=== PATIENT | female | born 1965 | race Caucasian/White ===

== ENCOUNTER 2017-02-03 12:29 | Inpatient (IN) ==
[2017-02-03 14:39] LABS: Basophils % 0.3 %; Eosinophils # 0.1 K/mcL (0.0-0.6); Eosinophils % 1.5 %; Hemoglobin 6.5 g/dL (11.5-15.4); Immature Granulocytes % 0.3 % (0-4); Mean Corpuscular Hemoglobin 27.3 pg (28.0-33.3); Mean Corpuscular Volume 88.2 fL (83.0-100.0); Monocytes # 0.4 K/mcL (0.0-1.3); Neutrophils # 6.3 K/mcL (1.6-8.9); Platelet Count 223 K/mcL (140-400); Red Blood Count 2.38 M/mcL (3.82-4.97); Red Cell Distribution Width 18.4 % (11.5-14.5); Segmented Neutrophils % 79.9 %
[2017-02-03 14:44] LABS: INR 1.1; Prothrombin Time 11.5 Seconds (9.4-12.1)
[2017-02-03 14:47] LABS: Activated Partial Thrombo Time 27.3 Seconds (26.0-36.0)
[2017-02-03 14:52] LABS: BUN/Creatinine Ratio 18 (6-26); Blood Urea Nitrogen 13 mg/dL (7-20); Calcium 8.7 mg/dL (8.6-10.8); Carbon Dioxide 23 mEq/L (19-29); Chloride 111 mEq/L (98-109); Glucose 123 mg/dL (70-99); Osmolality,Calculated 293 (280-300); Potassium 4.3 mEq/L (3.5-4.5); Sodium 141 mEq/L (136-145); eGFR For African Americans > 60 (> 60); eGFR For Non-African Americans > 60 (> 60)
--- NOTE | 2017-02-03 17:12 | Emergency Department Note ---
Disposition Clinical Impression: Vaginal bleeding Anemia Qualifiers: Anemia type: unspecified type Qualified Code(s): D64.9 - Anemia, unspecified Disposition: Admitted As Inpatient Condition: Fair Referrals: Karan Winchester CNP [Primary Care Provider] - Forms: ED Satisfaction Letter Time of Disposition: 17:21 Syncope HPI - General Chief Complaint: ED Syncope Stated Complaint: Syncopal Episode Time Seen by Provider: 02/03/17 17:11 Source: patient Mode of arrival: ambulatory Limitations: no limitations Nursing Notes Reviewed: Yes Vital Signs Reviewed: Yes - History of Present Illness HPI Narrative: 51-year-old female who came in because of a syncopal episodes that she got hot and sweaty and felt like tunnel vision was developing that dizzy and passed out. The patient states she's had. For multiple weeks and has been very heavy for the last 2 weeks. 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 Duration: minutes(s) Prodromal Symptoms: lightheaded Witnessed: yes - by bystander Context: at rest Current Symptoms: weakness History: none Treatments prior to arrival: none - Related Data Home Medications Medication Instructions Recorded Confirmed Levothyroxine [Synthroid] 175 mcg PO QAM 07/17/16 07/17/16 Losartan Potassium [Cozaar] 150 mg PO DAILY 07/17/16 07/17/16 Previous Rx's Medication Instructions Recorded Aspirin Enteric Coated [Aspirin EC] 81 mg PO DAILY #30 tablet.dr 07/19/16 Atorvastatin [Lipitor] 80 mg PO HS #60 tablet 07/19/16 Carvedilol [Coreg] 12.5 mg PO BIDWM #120 tablet 07/19/16 Clopidogrel [Plavix] 75 mg PO DAILY #30 tablet 07/19/16 Nitroglycerin [Nitrostat] 0.4 mg SL PRN PRN #60 tab.subl 07/19/16 Allergies Allergy/AdvReac Type Severity Reaction Status Date / Time No Known Allergies Allergy Verified 07/17/16 14:37 Constitutional: Denies: fever, chills, weakness, weight change Eyes: Denies: eye pain, eye discharge, vision change ENT ED: Denies: ear pain, throat pain, dental pain, hearing loss, epistaxis, congestion, dysphagia Cardiovascular: Denies: chest pain, palpitations, dyspnea on exertion, edema, syncope Respiratory: Denies: cough, dyspnea, wheezes, hemoptysis, stridor Gastrointestinal: Denies: abdominal pain, nausea, vomiting, diarrhea, constipation, hematemesis, melena, hematochezia Genitourinary: Denies: dysuria, frequency, hematuria, discharge Musculoskeletal: Denies: back pain, neck pain, arthralgia, myalgia Integumentary: Denies: rash, abrasion, lesions Neurological: Denies: headache, weakness, numbness, paresthesias, confusion, abnormal gait, vertigo Psychiatric: Denies: anxiety, depression, suicidal thoughts, homicidal thoughts , auditory hallucinations, visual hallucinations Endocrine: Denies: fatigue Hematological/Lymphatic: Denies: easy bleeding, easy bruising Allergic/Immunologic: Denies: facial swelling, urticaria Past Medical History - Past Medical History Medical history: Reports: hypertension, myocardial infarction, thyroid disease Surgical history: Reports: cholecystectomy Psychiatric history: Reports: no psych history - Social History Smoking Status: Never smoker Smokeless Tobacco Status: No Alcohol use: Reports: none Drug use: Reports: none Physical Exam - General Limitations: no limitations General appearance: alert, in no apparent distress - Head Head exam: atraumatic, normocephalic, normal inspection - Eye Eye exam: Present: normal appearance, PERRL, EOMI - ENT ENT exam: normal exam, normal oropharynx, mucous membranes moist - Neck Neck exam: Present: normal inspection, full ROM, trachea midline - Chest Chest inspection: Present: normal inspection, symmetric chest wall rise - Respiratory Respiratory exam: Present: normal lung sounds bilaterally - Cardiovascular Cardiovascular exam: Present: regular rate, normal rhythm, normal heart sounds - Abdominal Exam Abdominal exam: Present: soft, Non-Tender. Absent: tenderness, distention, guarding, rebound, rigidity - Extremities Exam Extremities exam: Present: normal inspection, full ROM. Absent: tenderness, pedal edema Course - Consultations Consultation #1: Discussed with , admit to the hospitalist and they will evaluate the patient for her vaginal bleeding. Time: 17:10 Consultation #2: Discussed with Ann Beck nurse practitioner, admit. Time: 17:41 Vital Signs Temperature 98 F 02/03/17 13:43 Pulse Rate 84 02/03/17 13:43 Respiratory Rate 16 02/03/17 13:43 Blood Pressure 128/65 02/03/17 13:43 O2 Sat by Pulse Oximetry 99 02/03/17 13:43 Temperature 98 F 02/03/17 13:43 Pulse Rate 60 02/03/17 17:26 Respiratory Rate 18 02/03/17 17:26 Blood Pressure 143/71 02/03/17 17:26 O2 Sat by Pulse Oximetry 100 02/03/17 17:26 Oxygen Delivery Oxygen Delivery Room Air Syncope - Lab Data Lab results reviewed: Yes I reviewed the patient's lab results. Result diagrams: 02/03/17 14:24 02/03/17 14:24 Lab Results 02/03/17 02/03/17 02/03/17 Range/Units 14:24 14:24 14:24 WBC 7.8 (4.3-11.1) K/mcL RBC 2.38 L (3.82-4.97) M/mcL Hgb 6.5 L (11.5-15.4) g/dL Hct 21.0 L (35.3-44.9) % MCV 88.2 (83.0-100.0) fL MCH 27.3 L (28.0-33.3) pg MCHC 31.0 L (31.6-35.5) g/dL RDW 18.4 H (11.5-14.5) % Plt Count 223 (140-400) K/mcL MPV 11.0 (9.4-12.4) fL Immature Gran % 0.3 (0-4) % Seg Neutrophils % 79.9 % Lymphocytes % 13.0 % Monocytes % 5.0 % Eosinophils % 1.5 % Basophils % 0.3 % Neutrophils # 6.3 (1.6-8.9) K/mcL Lymphocytes # 1.0 (0.6-4.6) K/mcL Monocytes # 0.4 (0.0-1.3) K/mcL Eosinophils # 0.1 (0.0-0.6) K/mcL Basophils # 0.0 (0.0-0.2) K/mcL PT 11.5 (9.4-12.1) Seconds INR 1.1 APTT 27.3 (26.0-36.0) Seconds Sodium 141 (136-145) mEq/L Potassium 4.3 (3.5-4.5) mEq/L Chloride 111 H (98-109) mEq/L Carbon Dioxide 23 (19-29) mEq/L BUN 13 (7-20) mg/dL Creatinine 0.71 (0.57-1.11) mg/dL Est GFR ( Amer) > 60 (> 60) Est GFR (Non-Af Amer) > 60 (> 60) BUN/Creatinine Ratio 18 (6-26) Glucose 123 H (70-99) mg/dL Calculated Osmolality 293 (280-300) Calcium 8.7 (8.6-10.8) mg/dL Troponin I (0-0.03) ng/mL 02/03/17 Range/Units 14:24 WBC (4.3-11.1) K/mcL RBC (3.82-4.97) M/mcL Hgb (11.5-15.4) g/dL Hct (35.3-44.9) % MCV (83.0-100.0) fL MCH (28.0-33.3) pg MCHC (31.6-35.5) g/dL RDW (11.5-14.5) % Plt Count (140-400) K/mcL MPV (9.4-12.4) fL Immature Gran % (0-4) % Seg Neutrophils % % Lymphocytes % % Monocytes % % Eosinophils % % Basophils % % Neutrophils # (1.6-8.9) K/mcL Lymphocytes # (0.6-4.6) K/mcL Monocytes # (0.0-1.3) K/mcL Eosinophils # (0.0-0.6) K/mcL Basophils # (0.0-0.2) K/mcL PT (9.4-12.1) Seconds INR APTT (26.0-36.0) Seconds Sodium (136-145) mEq/L Potassium (3.5-4.5) mEq/L Chloride (98-109) mEq/L Carbon Dioxide (19-29) mEq/L BUN (7-20) mg/dL Creatinine (0.57-1.11) mg/dL Est GFR ( Amer) (> 60) Est GFR (Non-Af Amer) (> 60) BUN/Creatinine Ratio (6-26) Glucose (70-99) mg/dL Calculated Osmolality (280-300) Calcium (8.6-10.8) mg/dL Troponin I 0.00 (0-0.03) ng/mL - EKG Data EKG attestation: Yes I reviewed and interpreted this EKG. EKG shows normal: sinus rhythm Rate: normal Rhythm: NSR Critical Care Time Critical Care Time: Yes Total Critical Care Time: 30 Attestation: The high probability of a clinically significant, sudden or life threatening deterioration of the [hematologic] system(s) required my full and direct attention, intervention and personal management. The aggregate critical care time was [30] minutes. This time is in addition to time spent performing reported procedures but includes the following: [x] Data Review and interpretation [x] Patient assessment and monitoring of vital signs [x] Documentation [x] Medication orders and management
--- NOTE | 2017-02-03 19:50 | OB/GYN Consult Note ---
Date of Encounter: 02/03/17 Time of Encounter: 19:35 Assessment and Plan (1) Vaginal bleeding Current Visit: Yes Status: Acute I discussed with the patient the possible causes of vaginal bleeding specifically focusing on hyperplasia and malignancy, I recommended a TVUS and if her lining is >4mm, I recommended adding her on this 02/05 for hysteroscopy, D and C, though I need medical clearance first terrell since she is on Plavix. She says she wants to think about it. History of Present Illness Consult date: 02/03/17 Requesting physician: Micheal Gonzalez Reason for consult: other (Vaginal Bleeding) Chief complaint: Vaginal Bleeding/syncope History of present illness: 51F, , admitted for syncope/low H&H. OBGYN consulted for vaginal bleeding. Patient has been bleeding for 1m. States that it has gotten worse over the last 2 weeks. She has had abnormal pap smears, requiring a cone biopsy. Her last 2 pap smears have been normal. States she is going through menopause and her last period was in July 2016. She has noticed blood clots. Doesn't remember last vaginal ultrasound. Has had this happen to her last year and resolved spontaneously. No family history of [employer] SERVICES cancer. Is taking clopidegrel for cardiac stent placement. Denies smoking, alcohol use. DILMA is Dr. Devi in [facility]. Past Med Surg Social Fam HX - Past Medical History Medical history: hypertension, myocardial infarction, thyroid disease Psychiatric history: no psych history - Past Surgical History Surgical History: cholecystectomy - Social History Smoking Status: Never smoker Smokeless Tobacco Status: No Alcohol use: none Drug use: none - Family History Mother Living Status: Hx Family Cardiac Disorders: Yes Hx Family Respiratory Disorders: No Hx Family Cancer: Yes Hx Family GI Disorders: Yes Hx Family Endocrine Disorder: Yes Medications and Allergies Levothyroxine [Synthroid] 175 mcg PO QAM 07/17/16 [History] Losartan Potassium [Cozaar] 100 mg PO DAILY 07/17/16 [History] Aspirin Enteric Coated [Aspirin EC] 81 mg PO DAILY #30 tablet. 07/19/16 [Rx] Atorvastatin [Lipitor] 80 mg PO HS #60 tablet 07/19/16 [Rx] Carvedilol [Coreg] 12.5 mg PO BIDWM #120 tablet 07/19/16 [Rx] Clopidogrel [Plavix] 75 mg PO DAILY #30 tablet 07/19/16 [Rx] Nitroglycerin [Nitrostat] 0.4 mg SL Q5M PRN 02/03/17 [History] Allergies No Known Allergies Allergy (Verified 07/17/16 14:37) Review of Systems Cardiovascular: no chest pain Respiratory: no wheezing Exam - Vital Signs Vital signs: Initial Vital Signs Temp Pulse Resp BP Pulse Ox 98 F 84 16 128/65 99 02/03/17 13:43 02/03/17 13:43 02/03/17 13:43 02/03/17 13:43 02/03/17 13:43 - Constitutional Constitutional: well developed, well nourished, no acute distress, average body habitus - HEENT HEENT: Normocephaly, Mucus Membranes Moist - Abdomen Abdomen: Present: non tender Results Result Diagrams: 02/03/17 14:24 02/03/17 14:24 Abnormal lab results RBC 2.38 M/mcL (3.82-4.97) L 02/03/17 14:24 Hgb 6.5 g/dL (11.5-15.4) L 02/03/17 14:24 Hct 21.0 % (35.3-44.9) L 02/03/17 14:24 MCH 27.3 pg (28.0-33.3) L 02/03/17 14:24 MCHC 31.0 g/dL (31.6-35.5) L 02/03/17 14:24 RDW 18.4 % (11.5-14.5) H 02/03/17 14:24 Chloride 111 mEq/L (98-109) H 02/03/17 14:24 Glucose 123 mg/dL (70-99) H 02/03/17 14:24 All other labs normal. Consult Discharge Plan - Plan Referrals: Karan Winchester CNP [Primary Care Provider] -
[2017-02-03] MEDS ORDERED: 0.9 % Sodium Chloride 250 ML ONE (19:59)
[2017-02-03] MEDS ORDERED: Naloxone 0.4 MG/ML INJ IVP PRN (21:10)
[2017-02-03] MEDS ORDERED: Nitroglycerin 0.4 MG TAB.SUBL SL PRN (21:33)
--- NOTE | 2017-02-03 21:36 | Internal Med History&Physical ---
Date of Encounter: 02/03/17 Time of Encounter: 21:35 Assessment and Plan (1) Anemia due to blood loss Current visit: Yes Status: Acute 1 patient has been experiencing heavy vaginal bleeding past 2 weeks hemoglobin upon arrival today was 6.5 down from 13.02 July 2016. Type And cross for 2 units and transfuse 2 We will continue to monitor H&H every 6 hours transfuse as needed 3 obtain ultrasound of pelvis 4. SSRS REPORT DEVELOPER consult (2) Vaginal bleeding Current visit: Yes Status: Acute 1 patient has been experiencing heavy of vaginal bleeding for the past few weeks -SSRS REPORT DEVELOPER consultation 2 pelvic ultrasound 3 we will consult cardiology for clearance for possible hysteroscope the D&C on per SSRS REPORT DEVELOPER 3 monitor H&H and transfuse as needed 4 . Hemodynamically stable at this time stable she is on aspirin and Plavix will have to continue due to drug-eluting stent 07/19/16 (3) CAD (coronary artery disease) Current visit: Yes Status: Acute 1 Seen chest pain or shortness of breath will continue with cardiac monitoring we will cycle cardiac troponins-due to sudden blood loss first set is negative- 2 continue with aspirin and Plavix as well as statin beta héctor will hold ARB for now Qualifiers: Coronary Disease-Associated Artery/Lesion type: [place] artery [place] vs. transplanted heart: [place] heart Associated angina: without angina Qualified Code(s): I25.10 - Atherosclerotic heart disease of [place] coronary artery without angina pectoris (4) DVT prophylaxis Current visit: No Status: Acute 1 SCDs (5) Hypertension Current visit: No Status: Chronic 1 resume controlled systolic 130s 140 will hold ARB for now due to recent blood loss continue with beta héctor Qualifiers: Hypertension type: essential hypertension Qualified Code(s): I10 - Essential (primary) hypertension (6) Hypothyroidism Current visit: No Status: Chronic 1 continue with Synthroid Qualifiers: Hypothyroidism type: unspecified Qualified Code(s): E03.9 - Hypothyroidism , unspecified Internal Medicine - H&P: HPI Chief complaint: Vag bleeding Admitted From: Emergency Dept Plans for Post Hospital Care: Home History of present illness: Ms. English is a 51 year old female past history of CAD with DO's 2 RCA 07/15 hypertension hypothyroid hyperlipidemia. According to the patient she has been experiencing heavy vaginal bleeding over the last 2 weeks. She has noticed blood clots and has been going through 10-15 pads a day as well as dependence undergarments. She has had similar experience approximately a year ago she was admitted to the hospital ultrasound was negative she was to follow up with her SSRS REPORT DEVELOPER for an ablation however bleeding stopped and she did not follow-up. In June 2016 the patient had a non-STEMI high cardiac catheter with drug-eluting stent to RCA and was placed on aspirin and Plavix. Today the patient was at work she became lightheaded and diaphoretic felt like she was in television and she had a syncopal episode. She denied any chest pain or shortness of breath prior to the incident. She was brought to the ER for evaluation and it was noted that her hemoglobin was 6.5. Previous hemoglobin in June was 13.3. Rest of her lab work was unremarkable. Cardiac troponin was 0. She was typed and crossed for 2 units of PRBCs, She was admitted for further workup and evaluation. At present time patient denies any chest pain or shortness of breath she is receiving blood transfusion appears to be hemodynamically stable at this time. I reviewed his case with Dr. Rivero agrees with plan Past Med Surg Social Fam HX - Past Medical History Medical history: hypertension, myocardial infarction, thyroid disease Psychiatric history: no psych history - Past Surgical History Surgical History: cholecystectomy - Social History Smoking Status: Never smoker Smokeless Tobacco Status: No Alcohol use: none Drug use: none - Family History Father Hx Family Cardiac Disorders: Yes (HTN) Hx Family Cancer: Yes (Thyroid/Lymphoma) Hx Family Endocrine Disorder: Yes (DM) Mother Living Status: Hx Family Cardiac Disorders: Yes Hx Family Respiratory Disorders: No Hx Family Cancer: Yes Hx Family GI Disorders: Yes Hx Family Endocrine Disorder: Yes Internal Medicine - H&P: Meds Levothyroxine [Synthroid] 175 mcg PO QAM 07/17/16 [History] Losartan Potassium [Cozaar] 100 mg PO DAILY 07/17/16 [History] Aspirin Enteric Coated [Aspirin EC] 81 mg PO DAILY #30 tablet. 07/19/16 [Rx] Atorvastatin [Lipitor] 80 mg PO HS #60 tablet 07/19/16 [Rx] Carvedilol [Coreg] 12.5 mg PO BIDWM #120 tablet 07/19/16 [Rx] Clopidogrel [Plavix] 75 mg PO DAILY #30 tablet 07/19/16 [Rx] Nitroglycerin [Nitrostat] 0.4 mg SL Q5M PRN 02/03/17 [History] Allergies No Known Allergies Allergy (Verified 07/17/16 14:37) All Systems PM: A 10-system review of systems was performed and is negative for pertinent findings except as documented above in the HPI. - Constitutional Constitutional: no chills, no fever(s), no night sweats - EENT Eyes: no change in vision, no discharge, no pain, no photophobia Nose, mouth and throat: no dysphagia, no nasal discharge, no neck pain, no sore throat - Cardiovascular Cardiovascular ROS IM: no chest pain, no diaphoresis, no dyspnea, no lightheadedness, no palpitations, no syncope - Respiratory Respiratory: no cough, no dyspnea, no wheezing, no excessive phlegm production - Gastrointestinal Gastrointestinal: no abdominal pain, no diarrhea, no hematemesis, no hematochezia, no melena, no nausea, no vomiting - Genitourinary Genitourinary: abnormal menses - Musculoskeletal Musculoskeletal ROS IM: no numbness, no tingling - Integumentary Integumentary IM: no rash, no unusual bruising - Neurological Neurological ROS: no confusion, no convulsions, no focal weakness, no numbness, no tingling, no tremor(s) - Hematologic/Lymphatic Hematologic/Lymphatic: no easy bruising - Constitutional Vitals: Temp Pulse Resp BP Pulse Ox 98.0 F 63 18 145/73 100 02/03/17 20:23 02/03/17 20:23 02/03/17 20:23 02/03/17 20:23 02/03/17 20:23 General appearance: Present: A&O X 3, answers questions appropriately - Head Head exam: Present: atraumatic, normocephalic - Eye Eye exam: Present: PERRL, conjuntiva pink, sclera anicteric Pupils: Present: PERRL - Neck Neck exam general surgery: Present: supple, trachea midline. Absent: lymphadenopathy - Respiratory Respiratory exam: Present: CTAB. Absent: accessory muscle use, rales, rhonchi, wheezes - Cardiovascular Cardiovascular exam: Present: RRR, +S1, +S2. Absent: diastolic murmur, gallop, rubs, systolic murmur - GI/Abdominal GI/Abdominal exam: Present: normal bowel sounds, soft, no peritoneal signs. Absent: distended, tenderness - Extremities Exam Extremities exam: Present: warm, radial pulses palpable and symetrical. Absent : calf tenderness, cyanotic, pedal edema - Neurological Exam Neurological exam: Present: CN II-XII intact, oriented X3, no focal deficits. Absent: pronater drift, facial droop, speech deficit - Skin Skin exam: Present: dry, intact Internal Med - H&P Results - Labs CBC & Chem 7: 02/03/17 14:24 02/03/17 14:24 - EKG Data EKG shows normal: sinus rhythm
--- NOTE | 2017-02-03 23:10 | Event Note ---
Date of Encounter: 02/03/17 Time of Encounter: 23:08 Patient seen and examined withpractitioner. Patient presents with 2 weeks of vaginal bleeding. Seems bleeding is quite significant. She change about 10 to 15 pads has to wear depends. Blood clots. Inpatient admission wake up at night to change pads. 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 She denies any chest pain. 12 lead EKG's pending currently patient is taking aspirin and Plavix after drug eluting stent placement in June 2020 sixteenths amid RCA. Patient is currently hemodynamically stable. And therefore will continue aspirin and Plavix to avoid risk of stent thrombosis. We will transfused 2 units of blood. ROBOT DESIGNER consul as well as cardiology consult for further recommendations. Continue carvedilol. Telemetry monitoring. Inpatient admission
[2017-02-04 03:17] LABS: Basophils % 0.4 %; Eosinophils # 0.2 K/mcL (0.0-0.6); Eosinophils % 2.1 %; Hematocrit 22.2 % (35.3-44.9); Hemoglobin 7.1 g/dL (11.5-15.4); Immature Granulocytes % 0.3 % (0-4); Lymphocytes # 2.2 K/mcL (0.6-4.6); Lymphocytes % 27.1 %; Mean Corpuscular Hemoglobin 27.7 pg (28.0-33.3); Mean Corpuscular Volume 86.7 fL (83.0-100.0); Mean Platelet Volume 10.6 fL (9.4-12.4); Monocytes # 0.5 K/mcL (0.0-1.3); Monocytes % 6.6 %; Neutrophils # 5.1 K/mcL (1.6-8.9); Platelet Count 172 K/mcL (140-400); Red Blood Count 2.56 M/mcL (3.82-4.97); Red Cell Distribution Width 16.8 % (11.5-14.5); Segmented Neutrophils % 63.5 %
[2017-02-04 03:31] LABS: BUN/Creatinine Ratio 19 (6-26); Blood Urea Nitrogen 12 mg/dL (7-20); Calcium 8.3 mg/dL (8.6-10.8); Carbon Dioxide 21 mEq/L (19-29); Chloride 112 mEq/L (98-109); Glucose 98 mg/dL (70-99); Osmolality,Calculated 288 (280-300); Potassium 3.7 mEq/L (3.5-4.5); Sodium 139 mEq/L (136-145); eGFR For African Americans > 60 (> 60); eGFR For Non-African Americans > 60 (> 60)
--- NOTE | 2017-02-04 09:23 | Cardiology Consult Note ---
Date of Encounter: 02/04/17 Time of Encounter: 08:20 Assessment and Plan (1) Pre-operative cardiovascular examination Current Visit: Yes Status: Acute Pre-operative cardiovascular examination for D&C, hysteroscopy with Dr. Yoon on 02/05/17. Presented with painless vaginal bleeding >1 month, heavy bleeding over the past 2 weeks-HgB 6.5 upon presentation, 7.1 this AM s/p 2 units PRBC. Hx of [place] s/p PCI to mRCA, dRCA, and PDA in June 2016; EF preserved per TTE. She denies chest pain or discomfort, describes activity achieving 4 METS without symptoms. She is an acceptable risk from cardiac standpoint to proceed with procedure. Ideally, recommend uninterrupted DAPT therapy for at least 1 year s/p ZACHARIAH placement; however given acute anemia secondary to vaginal bleeding, will consider holding asa, plavix as she has been taking 7+ months. Will discuss and review with Dr. Brooks prior to holding or stopping medications. (2) CAD (coronary artery disease) Current Visit: Yes Status: Acute Denies chest pain or discomfort. No ischemic ECG changes noted. Hx of CAD--[place] (NSTEMI) July 18, 2016 s/p PTCA/ZACHARIAH to mRCA and PTCA to dRCA, PDA. TTE 07/17/16: EF 60%, mild concentric LVH, mild LVDD, no significant valvular dysfunction, basal inferior wall hypokinesis Continue home CV medications. Qualifiers: Coronary Disease-Associated Artery/Lesion type: [place] artery [place] vs. transplanted heart: [place] heart Associated angina: without angina Qualified Code(s): I25.10 - Atherosclerotic heart disease of [place] coronary artery without angina pectoris Discussion w patient/family: The assessment and plan as outlined above was discussed with the patient and/or family members who expressed understanding and agreement. All questions were answered. Thank you for involving us in the care of your patient. Please call with any questions. The patient will be discussed and reviewed with Dr. Brooks; changes to be made accordingly. History of Present Illness Consult date: 02/04/17 Requesting physician: Vicente Rivero Consult reason: Pre-operative cardiovascular exam Chief complaint: Syncope, fatigue History of present illness: Ms. English is a 51 year old female with PMH significant for CAD s/p ZACHARIAH to mRCA ( June 2016), HTN, hypothyroidism, and HLD who presented to the ED after a syncopal episode at work yesterday. Reports >1 month history of persistent vaginal bleeding with heavy bleeding for the past 2 weeks; associated symptoms include 1 week history of fatigue. 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 She describes a few seconds of LOC. Upon presentation to ED, ECG was without ischemic changes, HgB was 6.5. She was transfused with 2 units PRBC overnight and HgB was 7.1 this AM. She reports a similar symptoms 2 years ago, however no intervention required at that time. Cardiology consulted today for pre-operative risk stratification for D&C, hysteroscopy on 02/05/17. Recent CV testing includes: LHC 07/18/16: LHC: s/p successful PTCA/ZACHARIAH to severe mRCA stenosis, PTCA of dRCA and PDA; otherwise mild-moderate non-obstructive CAD (40% mLAD, 20% 1st diag) TTE 07/17/16: EF 60%, mild concentric LVH, mild LVDD, no significant valvular dysfunction, basal inferior wall hypokinesis Past Med Surg Social Fam HX - Past Medical History Attestation: Yes The following information was validated with the patient. Source: patient, old records reviewed Medical history: coronary artery disease, hyperlipidemia, hypertension, myocardial infarction, thyroid disease Psychiatric history: no psych history - Past Surgical History Surgical History: angioplasty/stent, cholecystectomy - Social History Smoking Status: Never smoker Smokeless Tobacco Status: No Alcohol use: none Drug use: none - Family History Father Hx Family Cardiac Disorders: Yes (HTN) Hx Family Cancer: Yes (Thyroid/Lymphoma) Hx Family Endocrine Disorder: Yes (DM) Mother Living Status: Hx Family Cardiac Disorders: Yes Hx Family Respiratory Disorders: No Hx Family Cancer: Yes Hx Family GI Disorders: Yes Hx Family Endocrine Disorder: Yes Medications and Allergies Levothyroxine [Synthroid] 175 mcg PO QAM 07/17/16 [History] Losartan Potassium [Cozaar] 100 mg PO DAILY 07/17/16 [History] Aspirin Enteric Coated [Aspirin EC] 81 mg PO DAILY #30 tablet.dr 07/19/16 [Rx] Atorvastatin [Lipitor] 80 mg PO HS #60 tablet 07/19/16 [Rx] Carvedilol [Coreg] 12.5 mg PO BIDWM #120 tablet 07/19/16 [Rx] Clopidogrel [Plavix] 75 mg PO DAILY #30 tablet 07/19/16 [Rx] Nitroglycerin [Nitrostat] 0.4 mg SL Q5M PRN 02/03/17 [History] Allergies No Known Allergies Allergy (Verified 07/17/16 14:37) All Systems Review: A 10-system review of systems was performed and is negative for pertinent findings except as documented above in the HPI. - Cardiovascular Cardiovascular: as per HPI Physical Examination Vital Signs, Last 4 Hours Temp Pulse Resp BP Pulse Ox 02/04/17 06:47 98.2 F 59 16 133/74 100 General: Conversant, No Apparent Distress HEENT: Atraumatic, Normocephaly, Mucus Membranes Moist Neck: No JVD Cardiac: Reg Rate and Rhythm, Normal S1 and S2 Lungs: Normal Breath Sounds Neuro: Alert and responsive Abdomen: Soft Skin: No rashes noted on visualized skin Musculoskeletal: No Chest Wall Tenderness Extremities: No Edema, Normal Pulses Results 02/04/17 03:10 02/04/17 03:10 Lab Results 02/04/17 02/04/17 02/04/17 03:10 03:10 03:10 WBC 8.0 Hgb 7.1 L Hct 22.2 L Plt Count 172 Sodium 139 Potassium 3.7 Chloride 112 H Carbon Dioxide 21 BUN 12 Creatinine 0.62 Glucose 98 Calcium 8.3 L Troponin I 0.00 Active Medications Aspirin (Aspirin Ec) 81 mg PO DAILY [facility] Stop: 08/06/17 09:01 Atorvastatin Calcium (Lipitor) 80 mg PO HS [facility] Stop: 08/06/17 00:15 Last Admin: 02/04/17 00:43 Dose: 80 mg Carvedilol (Coreg) 12.5 mg PO BIDWM EWA PRN Reason: Protocol Stop: 08/06/17 00:16 Last Admin: 02/04/17 08:42 Dose: 12.5 mg Clopidogrel Bisulfate (Plavix) 75 mg PO DAILY [facility] Stop: 08/06/17 09:01 Levothyroxine Sodium (Synthroid) 175 mcg PO QAM [facility] Stop: 08/06/17 09:01 Last Admin: 02/04/17 08:41 Dose: 175 mcg Naloxone HCl (Narcan) 0.4 mg IVP Q2MIN PRN PRN Reason: Opioid Reversal Stop: 08/05/17 21:11 Nitroglycerin (Nitroglycerin) 0.4 mg SL Q5M PRN PRN Reason: chest pain Stop: 08/05/17 21:34 - Imaging and Cardiology Echo: report reviewed Cardiac cath: report reviewed Other Results: 12 hour tele: avg HR=64 SR. No significant event noted. - EKG Interpretation EKG results cardiology: personally reviewed Consult Discharge Plan - Plan Referrals: Karan Winchester SOUVENIR [employer]OVEL[employer]KER [Primary Care Provider] -
[2017-02-04 10:53] LABS: Hematocrit 23.1 % (35.3-44.9); Hemoglobin 7.5 g/dL (11.5-15.4)
[2017-02-04] MEDS ORDERED: 0.9 % Sodium Chloride 250 ML ONE ×2 (11:44→14:44)
--- NOTE | 2017-02-04 13:52 | Electrocardiograph Report ---
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
--- NOTE | 2017-02-04 15:56 | Internal Med Progress Note ---
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 Patient to undergo Hysteroscopy and D&C in am patient to receive a total of 4unit PRBC will repeat H&H this evening closely monitor H&H No active bleeding reported since hospitalization will continue to closely monitor Holding plavix as per cardiology recommendations (2) Vaginal bleeding Current Visit: Yes Status: Acute Assessment and plan: plan as listed above (3) CAD (coronary artery disease) Current Visit: Yes Status: Acute Assessment and plan: s/p ZACHARIAH placement in June 2016 Cardiology consultation appreciated Will continue Aspirin at this time and hold Plavix continue all other home medications. Qualifiers: Coronary Disease-Associated Artery/Lesion type: [place] artery [place] vs. transplanted heart: [place] heart Associated angina: without angina Qualified Code(s): I25.10 - Atherosclerotic heart disease of [place] coronary artery without angina pectoris (4) DVT prophylaxis Current Visit: No Status: Acute (5) Hypertension Current Visit: No Status: Chronic Assessment and plan: BP within acceptable range continue home medications Qualifiers: Hypertension type: essential hypertension Qualified Code(s): I10 - Essential (primary) hypertension (6) Hypothyroidism Current Visit: No Status: Chronic Assessment and plan: continue levothyroxine Qualifiers: Hypothyroidism type: unspecified Qualified Code(s): E03.9 - Hypothyroidism , unspecified (7) DVT prophylaxis Current Visit: Yes Status: Acute Assessment and plan: IPCD - Subjective Interval history: Patient seen and examined at bedside. REsting comfortably in bed and reports of no episode of vaginal bleeding since hospitalization. Denies any headache, sob, chest pain or any discomfort at this time. - Constitutional Vitals: Temp Pulse Resp BP Pulse Ox 97.8 F 62 15 145/90 99 02/04/17 14:57 02/04/17 14:42 02/04/17 14:42 02/04/17 14:42 02/04/17 14:42 General appearance: Present: A&O X 3, pleasant, no acute distress, obese, answers questions appropriately - Head Head exam: Present: atraumatic, normocephalic - Eye Eye exam: Present: normal appearance, conjuntiva pink, sclera anicteric - Respiratory Respiratory exam: Present: CTAB. Absent: accessory muscle use, rales, rhonchi, wheezes - Cardiovascular Cardiovascular exam: Present: RRR, +S1, +S2. Absent: diastolic murmur, gallop, rubs, systolic murmur - GI/Abdominal GI/Abdominal exam: Present: normal bowel sounds, soft, no peritoneal signs. Absent: distended, tenderness - Extremities Exam Extremities exam: Present: warm, radial pulses palpable and symetrical. Absent : calf tenderness, cyanotic, pedal edema - Neurological Exam Neurological exam: Present: alert, oriented X3, no focal deficits - Psychiatric Psychiatric exam: Present: normal affect, normal mood Internal Medicine: Result - Labs CBC & Chem 7: 02/04/17 09:58 02/04/17 03:10 Labs: Short CBC 02/04/17 02/04/17 Range/Units 03:10 09:58 WBC 8.0 (4.3-11.1) K/mcL Hgb 7.1 L 7.5 L (11.5-15.4) g/dL Hct 22.2 L 23.1 L (35.3-44.9) % Plt Count 172 (140-400) K/mcL Neutrophils # 5.1 (1.6-8.9) K/mcL BMP 02/04/17 03:10 Sodium 139 Potassium 3.7 Chloride 112 H Carbon Dioxide 21 BUN 12 Creatinine 0.62 Glucose 98 Calcium 8.3 L Cardiac Enzymes 02/04/17 02/04/17 Range/Units 03:10 09:58 Troponin I 0.00 0.00 (0-0.03) ng/mL - ABG Interpretation ABG results: PT/INR, D-dimer PT 11.5 Seconds (9.4-12.1) 02/03/17 14:24 Consult Discharge Plan - Plan Referrals: Karan Winchester CNP [Primary Care Provider] -
[2017-02-04] MEDS: Aspirin Enteric Coated 81 MG Tablet PO SCH (17:58)
[2017-02-04 19:25] LABS: Hematocrit 27.9 % (35.3-44.9)
[2017-02-04 19:26] LABS: Hemoglobin 9.2 g/dL (11.5-15.4)
--- NOTE | 2017-02-04 20:52 | Anesthesia Evaluation PreOp ---
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 07/19/16 [Rx] Atorvastatin [Lipitor] 80 mg PO HS #60 tablet 07/19/16 [Rx] Carvedilol [Coreg] 12.5 mg PO BIDWM #120 tablet 07/19/16 [Rx] Clopidogrel [Plavix] 75 mg PO DAILY #30 tablet 07/19/16 [Rx] Nitroglycerin [Nitrostat] 0.4 mg SL Q5M PRN 02/03/17 [History] Allergies No Known Allergies Allergy (Verified 07/17/16 14:37) - Meds/Allergy Pre-op Review Medications Reviewed: Yes Allergies Reviewed: Yes Beta Blockers on Current Med List: Yes (coreg) Anesthesia Results - Labs 02/04/17 19:12 02/04/17 03:10 - Imaging EKG: report reviewed, image reviewed (SB; septal FL (probably old)) Additional studies: 06/2016 TTE LVEF 60% mild concentric LVH mild LVDD no sign valvular dysfunction basal inferior wall hypokinesis Anesthesia Exam Last Vital Signs Temp 98.3 F 02/04/17 19:18 Pulse 61 02/04/17 19:18 Resp 16 02/04/17 19:18 BP 158/79 02/04/17 19:18 Pulse Ox 96 02/04/17 19:18 Weight: 104 kg - HEENT Pupil (Motor): Pupils equal, EOMI Mallampati: III Teeth: Normal Oral Opening: Greater than 3 - WATER POLLUTION CONTROL TECHNICIAN LOC: Oriented WATER POLLUTION CONTROL TECHNICIAN Motor: Normal RUE, Normal LUE, Normal RLE, Normal LLE, Normal Face WATER POLLUTION CONTROL TECHNICIAN Sensory: Normal: RUE, LUE, RLE, LLE, Face - Cardiac Rhythm: Regular Murmur: None - Pulmonary Breath Sounds: bilateral Clear Respiratory Effort: Symmetrical Anesthesia Assess/Plan ASA Score: 3 Modified Adalberto Scale for Level of Consciousness: Cooperative, oriented, and tranquil Anesthetic Plan: General Monitoring Plan: Standard Monitors Recovery Plan: PACU
[2017-02-05 04:47] LABS: Basophils % 0.6 %; Eosinophils # 0.2 K/mcL (0.0-0.6); Eosinophils % 2.7 %; Hematocrit 26.8 % (35.3-44.9); Hemoglobin 8.6 g/dL (11.5-15.4); Immature Granulocytes % 0.3 % (0-4); Lymphocytes # 2.2 K/mcL (0.6-4.6); Lymphocytes % 33.3 %; Mean Corpuscular HGB Conc 32.1 g/dL (31.6-35.5); Mean Corpuscular Hemoglobin 27.5 pg (28.0-33.3); Mean Corpuscular Volume 85.6 fL (83.0-100.0); Monocytes # 0.5 K/mcL (0.0-1.3); Monocytes % 7.4 %; Neutrophils # 3.7 K/mcL (1.6-8.9); Platelet Count 155 K/mcL (140-400); Red Blood Count 3.13 M/mcL (3.82-4.97); Red Cell Distribution Width 16.8 % (11.5-14.5); Segmented Neutrophils % 55.7 %
[2017-02-05 05:04] LABS: BUN/Creatinine Ratio 16 (6-26); Blood Urea Nitrogen 10 mg/dL (7-20); Carbon Dioxide 23 mEq/L (19-29); Chloride 111 mEq/L (98-109); Glucose 91 mg/dL (70-99); Magnesium 1.6 mg/dL (1.6-2.6); Osmolality,Calculated 289 (280-300); Phosphorous 3.4 mg/dL (2.3-4.7); Potassium 3.8 mEq/L (3.5-4.5); Sodium 140 mEq/L (136-145); eGFR For African Americans > 60 (> 60); eGFR For Non-African Americans > 60 (> 60)
--- NOTE | 2017-02-05 08:51 | Electrocardiograph Report ---
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
[2017-02-05] MEDS: Aspirin Enteric Coated 81 MG Tablet PO SCH (09:52)
--- NOTE | 2017-02-05 15:20 | Internal Med Progress Note ---
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 Patient to undergo Hysteroscopy and D&C today (02/05/17) s/p 4unit PRBC transfusion repeat H&H low but acceptable closely monitor H&H No active bleeding reported at this time will continue to closely monitor Holding plavix as per cardiology recommendations (2) Vaginal bleeding Current Visit: Yes Status: Acute Assessment and plan: plan as listed above (3) CAD (coronary artery disease) Current Visit: Yes Status: Acute Assessment and plan: s/p ZACHARIAH placement in June 2016 Cardiology consultation appreciated Will continue Aspirin at this time and hold Plavix continue all other home medications. Qualifiers: Coronary Disease-Associated Artery/Lesion type: [place] artery [place] vs. transplanted heart: [place] heart Associated angina: without angina Qualified Code(s): I25.10 - Atherosclerotic heart disease of [place] coronary artery without angina pectoris (4) Hypertension Current Visit: No Status: Chronic Assessment and plan: Noted to be hypertensive continue home medications Will add Hydralazine 10mg IVP q6h PRN SBP>160 Qualifiers: Hypertension type: essential hypertension Qualified Code(s): I10 - Essential (primary) hypertension (5) Hypothyroidism Current Visit: No Status: Chronic Assessment and plan: continue levothyroxine Qualifiers: Hypothyroidism type: unspecified Qualified Code(s): E03.9 - Hypothyroidism , unspecified (6) DVT prophylaxis Current Visit: Yes Status: Acute Assessment and plan: IPCD - Subjective Interval history: Patient seen and examined at bedside. Resting comfortably in bed. No overnight issues were reported. Denies any headache, sob, chest pain or any discomfort at this time. Scheduled for a hysteroscopy and D&C today. - Constitutional Vitals: Temp Pulse Resp BP Pulse Ox 97.4 F L 71 15 168/92 96 02/05/17 11:53 02/05/17 11:53 02/05/17 11:53 02/05/17 11:53 02/05/17 11:53 General appearance: Present: A&O X 3, pleasant, no acute distress, obese, answers questions appropriately - Head Head exam: Present: atraumatic, normocephalic - Eye Eye exam: Present: normal appearance, conjuntiva pink, sclera anicteric - Respiratory Respiratory exam: Present: CTAB. Absent: accessory muscle use, rales, rhonchi, wheezes - Cardiovascular Cardiovascular exam: Present: RRR, +S1, +S2. Absent: diastolic murmur, gallop, rubs, systolic murmur - GI/Abdominal GI/Abdominal exam: Present: normal bowel sounds, soft, no peritoneal signs. Absent: distended, tenderness - Extremities Exam Extremities exam: Present: warm, radial pulses palpable and symetrical. Absent : calf tenderness, cyanotic, pedal edema - Neurological Exam Neurological exam: Present: alert, oriented X3, no focal deficits - Psychiatric Psychiatric exam: Present: normal affect, normal mood Internal Medicine: Result - Labs CBC & Chem 7: 02/05/17 03:48 02/05/17 03:48 Labs: Short CBC 02/04/17 02/05/17 Range/Units 19:12 03:48 WBC 6.7 (4.3-11.1) K/mcL Hgb 9.2 L D 8.6 L (11.5-15.4) g/dL Hct 27.9 L 26.8 L (35.3-44.9) % Plt Count 155 (140-400) K/mcL Neutrophils # 3.7 (1.6-8.9) K/mcL BMP 02/05/17 03:48 Sodium 140 Potassium 3.8 Chloride 111 H Carbon Dioxide 23 BUN 10 Creatinine 0.61 Glucose 91 Calcium 8.0 L - ABG Interpretation ABG results: PT/INR, D-dimer PT 11.5 Seconds (9.4-12.1) 02/03/17 14:24 Consult Discharge Plan - Plan Referrals: Karan Winchester CNP [Primary Care Provider] -
[2017-02-05] MEDS ORDERED: Ondansetron 4 MG/2 ML VIAL ONE (17:36)
[2017-02-05] MEDS ORDERED: Ketorolac 30 MG/ML VIAL ONE (17:36)
[2017-02-05] MEDS ORDERED: *HR* Midazolam HCl 2 MG/2 ML VIAL ONE (17:37)
[2017-02-05] MEDS ORDERED: *HR* Propofol 200 MG/20 ML VIAL IVP ONE (17:37)
[2017-02-05] MEDS ORDERED: *HR* FentaNYL (PF) 100 MCG/2 ML VIAL ONE (17:37)
[2017-02-05] MEDS ORDERED: Lidocaine -MPF 2% 2 ML VIAL ONE (17:38)
[2017-02-06 04:01] LABS: Basophils % 0.5 %; Eosinophils # 0.2 K/mcL (0.0-0.6); Eosinophils % 2.4 %; Hemoglobin 8.9 g/dL (11.5-15.4); Immature Granulocytes % 0.2 % (0-4); Lymphocytes # 2.1 K/mcL (0.6-4.6); Lymphocytes % 25.5 %; Mean Corpuscular HGB Conc 31.8 g/dL (31.6-35.5); Mean Corpuscular Hemoglobin 27.4 pg (28.0-33.3); Mean Corpuscular Volume 86.2 fL (83.0-100.0); Mean Platelet Volume 11.4 fL (9.4-12.4); Monocytes # 0.6 K/mcL (0.0-1.3); Monocytes % 7.7 %; Neutrophils # 5.2 K/mcL (1.6-8.9); Platelet Count 176 K/mcL (140-400); Red Blood Count 3.25 M/mcL (3.82-4.97); Red Cell Distribution Width 16.1 % (11.5-14.5); Segmented Neutrophils % 63.7 %
[2017-02-06 04:10] LABS: BUN/Creatinine Ratio 23 (6-26); Blood Urea Nitrogen 15 mg/dL (7-20); Calcium 8.1 mg/dL (8.6-10.8); Carbon Dioxide 23 mEq/L (19-29); Chloride 110 mEq/L (98-109); Glucose 94 mg/dL (70-99); Magnesium 1.9 mg/dL (1.6-2.6); Osmolality,Calculated 291 (280-300); Phosphorous 3.5 mg/dL (2.3-4.7); Potassium 3.9 mEq/L (3.5-4.5); Sodium 140 mEq/L (136-145); eGFR For African Americans > 60 (> 60); eGFR For Non-African Americans > 60 (> 60)
[2017-02-06] MEDS: Aspirin Enteric Coated 81 MG Tablet PO SCH (10:15)
[2017-02-06] MEDS ORDERED: Lidocaine -MPF 2% 2 ML VIAL ONE (12:48)
[2017-02-06] MEDS ORDERED: *HR* FentaNYL (PF) 100 MCG/2 ML VIAL ONE (12:48)
[2017-02-06] MEDS ORDERED: *HR* Propofol 200 MG/20 ML VIAL IVP ONE (12:48)
[2017-02-06] MEDS ORDERED: *HR* Midazolam HCl 2 MG/2 ML VIAL ONE (12:48)
[2017-02-06] MEDS ORDERED: *HR* HYDROmorphone (PF) 1 MG/ML SYRINGE IVP PRN (13:31)
[2017-02-06] MEDS ORDERED: EPHEDrine 50 MG/ML VIAL ONE (13:37)
--- NOTE | 2017-02-06 14:46 | OB/GYN Procedure Note ---
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 - Diagnosis Date of procedure: 02/06/17 Pre-op diagnosis: abnormal uterine bleeding Post-op diagnosis: same - Procedure Procedure: Hysteroscopy, D&C Surgeon: Elinor Yoon Anesthesia Type: General Estimated blood loss (cc): 1 Fluids: crystalloid Procedure Complications: none Specimens collected: endometrial currettings Disposition: same day Findings: moderate amount of blood clots in endometrial cavity, moderate amount of proliferative looking endometrial tissue Narrative: The patient was taken to the operating room where she was properly prepped and draped in sterile manner under general anesthesia. After bimanual examination, the cervix was exposed with a weighted vaginal speculum and the anterior lip of the cervix grasped with a tenaculum. The uterus was sounded to a depth of 9cm. The endocervical canal was then progressively dilated after which a hysteroscope was then introduced into the uterine cavity using sterile saline solution as a distending media and with attached video camera. The endometrial cavity was distended with fluids and the cavity visualized. A moderate amount of proliferative appearing endometrium was noted. There were no direct intraluminal lesions seen. The patient tolerated the procedure well. Several pictures were taken of the endometrial cavity and the hysteroscope removed from the cavity. A large sharp curet was then used to obtain a moderate amount of tissue, which was the sent to pathologist for analysis. The instrument was removed from the vaginal vault. The patient was sent to recovery area in satisfactory postoperative condition.
--- NOTE | 2017-02-06 14:49 | Anesthesia Evaluation Post Op ---
Date of Encounter: 02/06/17 Time of Encounter: 14:30 - Vital Signs Vital Signs: Vital Signs/O2 Sat/Glucose, Most Current Temp Pulse Resp BP Pulse Ox 02/06/17 14:36 97.7 F 63 16 135/72 98 02/06/17 14:26 62 16 117/63 98 02/06/17 14:16 70 16 135/67 95 02/06/17 14:11 72 16 124/76 97 02/06/17 14:06 97.1 F L 81 14 119/83 94 L - Lungs Lungs: Clear Ascult./Percussion - Airway Airway: Non-obstructed - Cardiovascular Regular Rate - Mental Status Mental Status: Alert & Oriented, Answers Appropriately - Pain Pain Scale: 0 - Nausea Vomiting Nausea Vomiting: Not Present - Hydration Hydration: Ice chips - Discharge PostOp Status: Transfer Patient to floor
--- NOTE | 2017-02-06 15:04 | Discharge Summary ---
Date of Encounter: 02/06/17 Time of Encounter: 14:58 - Discharge Diagnosis (1) Anemia due to blood loss Priority: Primary Status: Acute (2) Vaginal bleeding Priority: Primary Status: Acute (3) CAD (coronary artery disease) Priority: Secondary Status: Chronic Qualifiers: Coronary Disease-Associated Artery/Lesion type: [place] artery [place] vs. transplanted heart: benton heart Associated angina: without angina Qualified Code(s): I25.10 - Atherosclerotic heart disease of [place] coronary artery without angina pectoris (4) Hypertension Priority: Secondary Status: Chronic Qualifiers: Hypertension type: essential hypertension Qualified Code(s): I10 - Essential (primary) hypertension (5) Hypothyroidism Priority: Secondary Status: Chronic Qualifiers: Hypothyroidism type: unspecified Qualified Code(s): E03.9 - Hypothyroidism , unspecified (6) DVT prophylaxis Priority: Secondary Status: Acute - Discharge Medications Home Medications: Levothyroxine [Synthroid] 175 mcg PO QAM 07/17/16 [History] Losartan Potassium [Cozaar] 100 mg PO DAILY 07/17/16 [History] Aspirin Enteric Coated [Aspirin EC] 81 mg PO DAILY #30 tablet. 07/19/16 [Rx] Atorvastatin [Lipitor] 80 mg PO HS #60 tablet 07/19/16 [Rx] Carvedilol [Coreg] 12.5 mg PO BIDWM #120 tablet 07/19/16 [Rx] Nitroglycerin [Nitrostat] 0.4 mg SL Q5M PRN 02/03/17 [History] Allergies/Adverse Reactions: Allergies No Known Allergies Allergy (Verified 07/17/16 14:37) Procedures/tests Complete & Pending: Procedures Performed prior 72 hours Category Date Time Status ECG 12 lead ECG [ECG] Routine Y 02/05/17 17:18 Completed Date of admission: 02/03/17 22:22 Primary care physician: Karan Winchester CNP Consults: inventory assistant: Dr. Yoon Discharging clinician: Luisa Wills Anticipated date of discharge: 02/06/17 - Patient Status Disposition: Home, Self-Care Condition: Good Functional capacity at discharge: independent ambulation Overall status at discharge: patient is back to baseline - Discharge Instructions Follow Up With: Elinor Yoon MD [Partnered Physician] - 02/20/17 4:15 pm Jana Verdugo CNP [Partnered Physician] - 02/23/17 2:30 pm Karan Winchester CNP [Primary Care Provider] - 02/10/17 1:30 pm Additional Instructions: Please follow up with her primary care physician within one week after discharge from the hospital. Please follow-up with your contracts analyst within 1-2 weeks after discharge from the hospital. Please follow-up with your DIRECTOR OF INSTITUTIONAL SALES physician within 2 weeks after discharge from the hospital. Please continue to hold Plavix until your follow up with your contracts analyst. Please continue all your other home medications as prescribed by your primary care physician. Please seek medical help if your vaginal bleeding worsens. - Diet and Activity Activity: resume usual activities as tolerated Diet: advance to your usual diet Hospital course: Ms. English is a 51 year old female with past medical history of CAD status post drug-eluting stent placement in 06/2016, hypertension, hypothyroidism who was admitted for acute blood loss anemia secondary to vaginal bleeding. Patient was evaluated by DIRECTOR OF INSTITUTIONAL SALES and was admitted under medicine service for acute blood loss anemia. Patient received 4 units PRBC transfusion. Cardiology was consulted for preop clearance and consultation in regards to continuation of patient's aspirin and Plavix. As per cardiology recommendation Plavix was placed on hold due to the active bleeding. She underwent hysteroscopy, D&C done by . Patient tolerated the procedure well and is resting comfortably in bed. She states her bleeding has subsided, she denies any discomfort at this time. Denies any shortness of breath, chest pain at this time. As per , patient is cleared for discharge from DIRECTOR OF IN[employer]UTIONAL SAL[employer] standpoint. Patient is hemodynamically stable, in no acute distress, will be discharged to home with follow-up with PCP, cardiology, and DIRECT[employer] OF [employer]UTIONAL SALES. She is to continue to hold Plavix until her follow-up with cardiology. Patient demonstrates understanding of her diagnosis, and agrees with the discharge care and plan. - Time Spent with Patient Total time spent providing and/or coordinating discharge services: Less than 30 minutes - Constitutional Vitals: Temp Pulse Resp BP Pulse Ox 97.7 F 63 16 135/72 98 02/06/17 14:36 02/06/17 14:36 02/06/17 14:36 02/06/17 14:36 02/06/17 14:36 General appearance: Present: A&O X 3, pleasant, no acute distress, obese, answers questions appropriately - Head Head exam: Present: atraumatic, normocephalic - Eye Eye exam: Present: normal appearance, conjuntiva pink, sclera anicteric - Respiratory Respiratory exam: Present: CTAB, respiratory distress, wheezes - Cardiovascular Cardiovascular exam: Present: RRR, +S1, +S2. Absent: diastolic murmur, gallop, rubs, systolic murmur - GI/Abdominal GI/Abdominal exam: Present: normal bowel sounds, soft, no peritoneal signs. Absent: distended, tenderness - Extremities Exam Extremities exam: Present: warm, radial pulses palpable and symetrical. Absent : calf tenderness, cyanotic, pedal edema - Neurological Exam Neurological exam: Present: alert, oriented X3, no focal deficits - Psychiatric Psychiatric exam: Present: normal affect, normal mood
[2017-02-06 15:13] VITALS: BP 146/78
--- NOTE | 2017-02-06 17:58 | Electrocardiograph Report ---
[address] [place] [address] Test Date: 2017-02-05 Pat Name: Aubree English Department: 106 Room: 3B16 Gender: F Physician Pediatrician: : 1965 Requested By: Luisa Wills Order Number: [id number] Reading MD: Valorie Griffin Measurements Intervals [place] Rate: 49 P: 18 PA: 142 QRS: 0 QRSD: 105 T: 54 QT: 436 QTc: 406 Interpretive Statements SINUS BRADYCARDIA SEPTAL MYOCARDIAL INFARCTION, OF INDETERMINATE AGE Artifact present Electronically Signed On 02-06-2017 17:56:29 EST by Valorie Griffin
== END 2017-02-06 16:16 | disposition home or self-care (01) | DRG 744 ==
LOC: EMEROO 12:29 → 3BNU 12:29 → SUATTDRO 22:22
PROVIDERS: ADMIT Nurse Practitioner Acute Care; ATTEND Internal Medicine

== ENCOUNTER 2019-04-12 00:30 | Observation (INO) ==
--- NOTE | 2019-04-12 00:44 | Emergency Department Note ---
Disposition Clinical Impression: Chest pain Qualifiers: Chest pain type: unspecified Qualified Code(s): R07.9 - Chest pain, unspecified Disposition: Admitted As Inpatient Condition: Good Time of Disposition: 01:48 Chest Pain HPI - General Chief Complaint: ED Chest Pain Stated Complaint: Chest Pain Time Seen by Provider: 04/12/19 00:30 Source: patient Mode of arrival: private vehicle Limitations: no limitations Vital Signs Reviewed: Yes Nursing Notes Reviewed: Yes - History of Present Illness HPI Narrative: 53-year-old female with a past medical history of hypertension, hyperlipidemia, previous PR in 2016. Patient states that she has had 3 episodes of left-sided chest pain today that happened while she was up and moving around. Patient states that after the first episode and second episode she took a nitroglycerin and sat down and this relieved the pain. After the third episode she decided to come get checked out at the ER. She states this feels different than when she had her PR, the pain does not radiate anywhere, she states that it is left sided under her left breast, it is sharp in nature, 8 out of 10 in severity, lasts for about 2 minutes. She denies any associated symptoms of lightheadedness, nausea, diaphoresis, changes in vision. Patient has not had any changes to her medication recently. Severity scale (1-10): 0 - Related Data Home Medications Medication Instructions Recorded Confirmed Levothyroxine [Synthroid] 175 mcg PO QAM 07/17/16 02/03/17 Losartan Potassium [Cozaar] 100 mg PO DAILY 07/17/16 02/03/17 Nitroglycerin [Nitrostat] 0.4 mg SL Q5M PRN 02/03/17 02/03/17 Previous Rx's Medication Instructions Recorded Aspirin Enteric Coated [Aspirin EC] 81 mg PO DAILY #30 tablet. 07/19/16 Atorvastatin [Lipitor] 80 mg PO HS #60 tablet 07/19/16 Carvedilol [Coreg] 12.5 mg PO BIDWM #120 tablet 07/19/16 Allergies Allergy/AdvReac Type Severity Reaction Status Date / Time No Known Allergies Allergy Verified 07/17/16 14:37 Review of Systems: All systems ED: reviewed and negative except as stated. Constitutional: Denies: fever, chills ENT ED: Denies: ear pain, throat pain Cardiovascular: Denies: palpitations Reports: intermittent chest pain x3 today Respiratory: Denies: dyspnea Reports: chronic non-productive cough Gastrointestinal: Denies: abdominal pain, nausea, vomiting, diarrhea, constipation Genitourinary: Denies: urgency, dysuria, frequency Musculoskeletal: Denies: neck pain Reports: chronic back pain Integumentary: Denies: rash, abrasion Neurological: Denies: headache, weakness, numbness, paresthesias Psychiatric: Denies: anxiety, depression Endocrine: Denies: fatigue, heat or cold intolerance Hematological/Lymphatic: Denies: easy bleeding, easy bruising Allergic/Immunologic: Denies: facial swelling, urticaria Chest Pain PMH - Past Medical History Medical history: Reports: coronary artery disease, hyperlipidemia, hypertension, myocardial infarction, thyroid disease Surgical history: Reports: angioplasty/stent, cholecystectomy Psychiatric history: Reports: no psych history - Social History Smoking Status: Never smoker Alcohol use: Reports: none Drug use: Reports: none Physical Exam General: A&O x 3. No acute distress. Well developed, well nourished. Head: atraumatic, normocephalic. ENT: No conjunctival injection, no scleral icterus. PERRLA. EOMI. Oropharynx non- erythematous. mucous membranes moist. Neuro: No focal deficits, no speech deficit, no facial droop, mentating well. BUE/BLE Str 5/5. Pulm: Lungs CTAB A/P. No wheezes, rales, ronchi. Cardio: RRR no m/r/g. Chest not tender to palpation. Abd: Soft, non-distended. Normoactive bowel sounds. Non-tender to palpation. No guarding. Non rigid. Extremities: Radial pulses 2+ radha, dorsalis pedis/posterior tibialis 2+ radha. No LE edema. No cyanosis, clubbing. Skin: warm, dry, intact. No rashes. Psych: Appropriate mood and affect. Answers questions appropriately. Cooperative with exam. - General Limitations: no limitations General appearance: alert, in no apparent distress Course Course Narrative: Ddx includes but is not limited to: ACS, musculoskeletal, costochondritis, stable angina Workup will include: CBC, BMP, troponin, CXR, EKG Vital Signs Temperature 99.2 F 04/12/19 00:35 Pulse Rate 69 04/12/19 00:35 Respiratory Rate 17 04/12/19 00:35 Blood Pressure 168/72 04/12/19 00:35 O2 Sat by Pulse Oximetry 100 04/12/19 00:35 Temperature 99.2 F 04/12/19 00:35 Pulse Rate 56 04/12/19 01:31 Respiratory Rate 17 04/12/19 01:31 Blood Pressure 149/68 04/12/19 01:31 O2 Sat by Pulse Oximetry 100 04/12/19 01:31 Oxygen Delivery Oxygen Delivery Room Air Chest Pain - MDM Narrative Medical decision making narrative: Chest x-ray was negative for acute cardiopulmonary findings, EKG did not show any signs of ischemia, troponin was negative. Patient did not have any further episodes of chest pain while in the department. However given patient's history of prior heart attack in 2016 with similar vague complaints, as well as stent placement, she could benefit from further inpatient workup. Patient was admitted to hospitalist Dr. Claros who agreed to accept the patient to his service. Patient was given an opportunity to ask questions at bedside and all of their concerns were addressed. Patient verbalized understanding and agreement with plan of care. Pt remained stable while in the department. - Medical Records Medical records reviewed: Yes I reviewed the patient's medical records. - Lab Data Lab results reviewed: Yes I reviewed the patient's lab results. Result diagrams: 04/12/19 00:42 04/12/19 00:42 Lab Results 04/12/19 04/12/19 04/12/19 Range/Units 00:42 00:42 00:42 WBC 7.7 (4.3-11.1) K/mcL RBC 4.40 (3.82-4.97) M/mcL Hgb 12.7 (11.5-15.4) g/dL Hct 39.9 (35.3-44.9) % MCV 90.7 (83.0-100.0) fL MCH 28.9 (28.0-33.3) pg MCHC 31.8 (31.6-35.5) g/dL RDW 13.8 (11.5-14.5) % Plt Count 171 (140-400) K/mcL MPV 11.3 (9.4-12.4) fL Immature Gran % 0.3 (0-4) % Seg Neutrophils % 61.6 % Lymphocytes % 26.4 % Monocytes % 7.9 % Eosinophils % 3.2 % Basophils % 0.6 % Neutrophils # 4.8 (1.6-8.9) K/mcL Lymphocytes # 2.0 (0.6-4.6) K/mcL Monocytes # 0.6 (0.0-1.3) K/mcL Eosinophils # 0.3 (0.0-0.6) K/mcL Basophils # 0.1 (0.0-0.2) K/mcL PT 10.8 (9.4-12.1) Seconds INR 1.0 APTT 31.2 (26.0-36.0) Seconds Sodium 141 (136-145) mEq/L Potassium 4.1 (3.5-5.1) mEq/L Chloride 107 (98-107) mEq/L Carbon Dioxide 24 (23-29) mEq/L BUN 18 (6-20) mg/dL Creatinine 0.62 (0.60-1.20) mg/dL Est GFR ( Amer) > 60 (> 60) Est GFR (Non-Af Amer) > 60 (> 60) BUN/Creatinine Ratio 29 H (6-26) Glucose 108 H (70-105) mg/dL Calculated Osmolality 294 (280-300) Calcium 9.6 (8.6-10.3) mg/dL Troponin I < 0.03 (< 0.04) ng/mL - Radiology Data Radiology results reviewed: Yes I reviewed the patient's radiology results. Chest X-Ray 04/12/19 00:30 IMPRESSION: No acute findings. D/ / Yeyo Melton / Yeyo Melton Interpreting Provider: Yeyo Melton - EKG Data EKG attestation: Yes I reviewed and interpreted this EKG. EKG results narrative: HR 60 rhythm sinus, axis normal. NV 182, QRS 97, QTC 421. No evidence of ST elevation or depression. No Sgisi-Pzyxmtmld-Ggcdr, no Brugada, no LVH. Heart Score - Score History: Slightly Suspicious EKG: Normal Age: 45-65 Risk Factors: Equal/Greater than 3 risk factor or history of atherosclerotic disease Troponin: Less than normal limit HEART Score Total: 3
[2019-04-12] MEDS ORDERED: Aspirin 325 MG TABLET PO ONE (00:48)
[2019-04-12] MEDS ORDERED: Nitroglycerin 0.4 MG TAB.SUBL SL PRN ×2 (00:48→07:23)
[2019-04-12 00:53] LABS: Basophils # 0.1 K/mcL (0.0-0.2); Basophils % 0.6 %; Eosinophils # 0.3 K/mcL (0.0-0.6); Eosinophils % 3.2 %; Hematocrit 39.9 % (35.3-44.9); Hemoglobin 12.7 g/dL (11.5-15.4); Immature Granulocytes % 0.3 % (0-4); Lymphocytes % 26.4 %; Mean Corpuscular HGB Conc 31.8 g/dL (31.6-35.5); Mean Corpuscular Hemoglobin 28.9 pg (28.0-33.3); Mean Corpuscular Volume 90.7 fL (83.0-100.0); Mean Platelet Volume 11.3 fL (9.4-12.4); Monocytes # 0.6 K/mcL (0.0-1.3); Monocytes % 7.9 %; Neutrophils # 4.8 K/mcL (1.6-8.9); Platelet Count 171 K/mcL (140-400); Red Cell Distribution Width 13.8 % (11.5-14.5); Segmented Neutrophils % 61.6 %
[2019-04-12 01:04] LABS: Prothrombin Time 10.8 Seconds (9.4-12.1)
[2019-04-12 01:06] LABS: Activated Partial Thrombo Time 31.2 Seconds (26.0-36.0)
[2019-04-12 01:15] LABS: BUN/Creatinine Ratio 29 (6-26); Blood Urea Nitrogen 18 mg/dL (6-20); Calcium 9.6 mg/dL (8.6-10.3); Carbon Dioxide 24 mEq/L (23-29); Chloride 107 mEq/L (98-107); Glucose 108 mg/dL (70-105); Osmolality,Calculated 294 (280-300); Potassium 4.1 mEq/L (3.5-5.1); Sodium 141 mEq/L (136-145); eGFR For Non-African Americans > 60 (> 60)
[2019-04-12 01:16] LABS: Troponin I < 0.03 ng/mL (< 0.04)
--- NOTE | 2019-04-12 01:37 | Emergency Department Note ---
Disposition Clinical Impression: Chest pain Qualifiers: Chest pain type: unspecified Qualified Code(s): R07.9 - Chest pain, unspecified Disposition: Admitted As Inpatient Condition: Good Referrals: NONE,PCP [Primary Care Provider] - Forms: ED Satisfaction Letter General Adult HPI - General Chief complaint: ED Chest Pain Stated complaint: Chest Pain Time Seen by Provider: 04/12/19 00:30 Source: patient Mode of arrival: private vehicle Limitations: no limitations - History of Present Illness Pain Scale: 0 - Related Data Home Medications Medication Instructions Recorded Confirmed Levothyroxine [Synthroid] 175 mcg PO QAM 07/17/16 02/03/17 Losartan Potassium [Cozaar] 100 mg PO DAILY 07/17/16 02/03/17 Nitroglycerin [Nitrostat] 0.4 mg SL Q5M PRN 02/03/17 02/03/17 Previous Rx's Medication Instructions Recorded Aspirin Enteric Coated [Aspirin EC] 81 mg PO DAILY #30 tablet. 07/19/16 Atorvastatin [Lipitor] 80 mg PO HS #60 tablet 07/19/16 Carvedilol [Coreg] 12.5 mg PO BIDWM #120 tablet 07/19/16 Allergies Allergy/AdvReac Type Severity Reaction Status Date / Time No Known Allergies Allergy Verified 07/17/16 14:37 Past Medical History - Past Medical History Medical history: Reports: coronary artery disease, hyperlipidemia, hypertension, myocardial infarction, thyroid disease Surgical history: Reports: angioplasty/stent, cholecystectomy Psychiatric history: Reports: no psych history - Social History Smoking Status: Never smoker Smokeless Tobacco Status: No Alcohol use: Reports: none Drug use: Reports: none Physical Exam - General Limitations: no limitations General appearance: alert, in no apparent distress Course Vital Signs Temperature 99.2 F 04/12/19 00:35 Pulse Rate 69 04/12/19 00:35 Respiratory Rate 17 04/12/19 00:35 Blood Pressure 168/72 04/12/19 00:35 O2 Sat by Pulse Oximetry 100 04/12/19 00:35 Temperature 99.2 F 04/12/19 00:35 Pulse Rate 56 04/12/19 01:31 Respiratory Rate 17 04/12/19 01:31 Blood Pressure 149/68 04/12/19 01:31 O2 Sat by Pulse Oximetry 100 04/12/19 01:31 Oxygen Delivery Oxygen Delivery Room Air Medical Decision Making - Lab Data Result diagrams: 04/12/19 00:42 04/12/19 00:42 Lab Results 04/12/19 04/12/19 04/12/19 Range/Units 00:42 00:42 00:42 WBC 7.7 (4.3-11.1) K/mcL RBC 4.40 (3.82-4.97) M/mcL Hgb 12.7 (11.5-15.4) g/dL Hct 39.9 (35.3-44.9) % MCV 90.7 (83.0-100.0) fL MCH 28.9 (28.0-33.3) pg MCHC 31.8 (31.6-35.5) g/dL RDW 13.8 (11.5-14.5) % Plt Count 171 (140-400) K/mcL MPV 11.3 (9.4-12.4) fL Immature Gran % 0.3 (0-4) % Seg Neutrophils % 61.6 % Lymphocytes % 26.4 % Monocytes % 7.9 % Eosinophils % 3.2 % Basophils % 0.6 % Neutrophils # 4.8 (1.6-8.9) K/mcL Lymphocytes # 2.0 (0.6-4.6) K/mcL Monocytes # 0.6 (0.0-1.3) K/mcL Eosinophils # 0.3 (0.0-0.6) K/mcL Basophils # 0.1 (0.0-0.2) K/mcL PT 10.8 (9.4-12.1) Seconds INR 1.0 APTT 31.2 (26.0-36.0) Seconds Sodium 141 (136-145) mEq/L Potassium 4.1 (3.5-5.1) mEq/L Chloride 107 (98-107) mEq/L Carbon Dioxide 24 (23-29) mEq/L BUN 18 (6-20) mg/dL Creatinine 0.62 (0.60-1.20) mg/dL Est GFR ( Amer) > 60 (> 60) Est GFR (Non-Af Amer) > 60 (> 60) BUN/Creatinine Ratio 29 H (6-26) Glucose 108 H (70-105) mg/dL Calculated Osmolality 294 (280-300) Calcium 9.6 (8.6-10.3) mg/dL Troponin I < 0.03 (< 0.04) ng/mL Attestation Statement - Attestation Attestation: I examined this patient and my medical decision-making was reviewed with the Resident Physician. I agree with the documented findings, disposition and treatment plan as described except to the extent set forth below. 53 year old female presents to the eD with complatins of chest pain earlier tonight that was relieved with nitro and has a history of [place] inthe pastthere required two stents. Patient is chest pain free currently, non ichemic ekg, and negative troponin. But clinical history indicates that she can be at risk for unstable angina at this time and kristina nilson to be admitted to medicine. aSA therapy given, currently on plavix
[2019-04-12] MEDS ORDERED: Naloxone 0.4 MG/ML INJ IVP PRN (07:29)
--- NOTE | 2019-04-12 08:30 | Internal Med History&Physical ---
Date of Encounter: 04/12/19 Time of Encounter: 08:00 Internal Medicine - H&P: HPI Chief complaint: Chest pain of 1 day duration History of present illness: Ms. English is a 53 year old female with pmh of obesity, CAD s/p stent, hypothyroidism, hypertension presenting with complaints of chest pain of 1 day duration. Patient says she woke up yesterday and had chest pain, sharp lasting about 1 minute and took some nitroglycerin which helped relieve the pain. She felt fine for the rest of the day but then she experienced similar chest pain that felt like a discomfort later in the night. She took another nitroglycerin tablet but decided to come to the hospital in light of her previous DC s/p stent. She denies any fevers, chills or shortness of breath. Had a recent cough. Denies any other acute symptoms. In the ER, she had EKG and troponins WNL and she is being admitted for further management Past Med Surg Social Fam HX - Past Medical History Medical history: coronary artery disease, hyperlipidemia, hypertension, myocardial infarction, thyroid disease Psychiatric history: no psych history - Past Surgical History Surgical History: angioplasty/stent, cholecystectomy - Social History Smoking Status: Never smoker Smokeless Tobacco Status: No Alcohol use: rarely Drug use: none - Family History Father Hx Family Cardiac Disorders: Yes (HTN) Hx Family Cancer: Yes (Thyroid/Lymphoma) Hx Family Endocrine Disorder: Yes (DM) Mother Living Status: Hx Family Cardiac Disorders: Yes Hx Family Respiratory Disorders: No Hx Family Cancer: Yes Hx Family GI Disorders: Yes Hx Family Endocrine Disorder: Yes Internal Medicine - H&P: Meds Levothyroxine [Synthroid] 175 mcg PO QAM 07/17/16 [History] Losartan Potassium [Cozaar] 100 mg PO DAILY 07/17/16 [History] Aspirin Enteric Coated [Aspirin EC] 81 mg PO DAILY #30 tablet. 07/19/16 [Rx] Atorvastatin [Lipitor] 80 mg PO HS #60 tablet 07/19/16 [Rx] Carvedilol [Coreg] 12.5 mg PO BIDWM #120 tablet 07/19/16 [Rx] Nitroglycerin [Nitrostat] 0.4 mg SL Q5M PRN 02/03/17 [History] Clopidogrel [Plavix] 75 mg PO DAILY 05/14/19 [History] Allergy/AdvReac Type Severity Reaction Status Date / Time No Known Allergies Allergy Verified 07/17/16 14:37 All Systems PM: A 10-system review of systems was performed and is negative for pertinent findings except as documented above in the HPI. - Constitutional Constitutional: no chills, no fever(s), no night sweats - EENT Eyes: no change in vision, no discharge, no pain, no photophobia Ears: no ear discharge, no ear pain, no tinnitus Nose, mouth and throat: no dysphagia, no nasal discharge, no neck pain, no sore throat - Cardiovascular Cardiovascular ROS IM: chest pain, no diaphoresis, no dyspnea, no lightheadedness, no palpitations, no syncope - Respiratory Respiratory: no cough, no dyspnea, no wheezing, no excessive phlegm production - Gastrointestinal Gastrointestinal: no abdominal pain, no diarrhea, no hematemesis, no hematochezia, no melena, no nausea, no vomiting - Genitourinary Genitourinary: no change in urinary stream, no dysuria, no flank pain, no hematuria - Musculoskeletal Musculoskeletal ROS IM: no numbness, no tingling - Integumentary Integumentary IM: no rash, no unusual bruising - Neurological Neurological ROS: no confusion, no convulsions, no focal weakness, no numbness, no tingling, no tremor(s) - Hematologic/Lymphatic Hematologic/Lymphatic: no easy bruising - Constitutional Vitals: Temp Pulse Resp BP Pulse Ox 98.5 F 53 18 153/84 99 04/12/19 07:33 04/12/19 07:33 04/12/19 07:33 04/12/19 07:33 04/12/19 07:33 Exam: NAD - Head Head exam: Present: atraumatic, normocephalic - Eye Eye exam: Present: PERRL, conjuntiva pink, sclera anicteric Pupils: Present: PERRL - Neck Neck exam general surgery: Present: supple, trachea midline. Absent: lymphadenopathy - Respiratory Respiratory exam: Present: CTAB. Absent: accessory muscle use, rales, rhonchi, wheezes - Cardiovascular Cardiovascular exam: Present: RRR, +S1, +S2. Absent: diastolic murmur, gallop, rubs, systolic murmur - GI/Abdominal GI/Abdominal exam: Present: normal bowel sounds, soft, no peritoneal signs. Absent: distended, tenderness - Extremities Exam Extremities exam: Present: warm, radial pulses palpable and symmetrical. Absent: calf tenderness, cyanotic, pedal edema - Neurological Exam Neurological exam: Present: CN II-XII intact, oriented X3, no focal deficits. Absent: pronater drift, facial droop, speech deficit - Skin Skin exam: Present: dry, intact Internal Med - H&P Results - Labs CBC & Chem 7: 04/12/19 00:42 04/12/19 00:42 Labs: Short CBC 04/12/19 Range/Units 00:42 WBC 7.7 (4.3-11.1) K/mcL Hgb 12.7 (11.5-15.4) g/dL Hct 39.9 (35.3-44.9) % Plt Count 171 (140-400) K/mcL Neutrophils # 4.8 (1.6-8.9) K/mcL BMP 04/12/19 00:42 Sodium 141 Potassium 4.1 Chloride 107 Carbon Dioxide 24 BUN 18 Creatinine 0.62 Glucose 108 H Calcium 9.6 Cardiac Enzymes 04/12/19 04/12/19 Range/Units 00:42 07:20 Troponin I < 0.03 < 0.03 (< 0.04) ng/mL - Impressions ITS Impressions Chest X-Ray 04/12/19 00:30 IMPRESSION: No acute findings. D/ / Yeyo Melton / Yeyo Melton Interpreting Provider: Yeyo Melton - Assessment and Plan (1) Chest pain Current Visit: Yes Status: Acute Assessment and plan: Chest pain with previous DC and risk factors for CAD Continue on aspirin and plavix. Obtain 2D echo and stress test Qualifiers: Chest pain type: unspecified Qualified Code(s): R07.9 - Chest pain, unspecified (2) Hypertension Current Visit: Yes Status: Chronic Assessment and plan: Continue losartan Qualifiers: Hypertension type: essential hypertension Qualified Code(s): I10 - Essential (primary) hypertension (3) Hypothyroidism Current Visit: Yes Status: Acute Assessment and plan: Continue levothyroxine Qualifiers: Qualified Code(s): E03.9 - Hypothyroidism, unspecified (4) HLD (hyperlipidemia) Current Visit: Yes Status: Acute Assessment and plan: On statin therapy Qualifiers: Hyperlipidemia type: mixed hyperlipidemia Qualified Code(s): E78.2 - Mixed hyperlipidemia (5) DVT prophylaxis Current Visit: Yes Status: Acute Assessment and plan: heparin sc - Time Spent With Patient Total time spent is greater than 50% in coordination of care (as documented) at patient's floor/unit and/or counseling patient:
[2019-04-12] MEDS ORDERED: Regadenoson 0.4 MG/5 ML SYRINGE IVP ONE (09:14)
[2019-04-12] MEDS ORDERED: Perflutren Lipid Microsphere 1.3 ML in 0.9 % Sodium Chloride 8.7 ML IVP ONE (17:38)
--- NOTE | 2019-04-12 17:39 | Electrocardiograph Report ---
[address] [place] [address] Test Date: 2019-04-12 Pat Name: Aubree English Department: EXAM1 Room: 3B37 Gender: F [employer]ley [employer]ic: : 1965 Requested By: Cris Maldonado Order Number: [id number] Reading MD: Yue Wilde Measurements Intervals [place] Rate: 60 P: 67 [place]: 182 QRS: 31 QRSD: 97 T: 66 QT: 421 QTc: 421 Interpretive Statements Sinus rhythm Anteroseptal infarct, old Electronically Signed On 04-12-2019 17:37:39 EDT by Yue Wilde
[2019-04-13 07:16] LABS: Basophils % 0.5 %; Eosinophils # 0.2 K/mcL (0.0-0.6); Hematocrit 40.7 % (35.3-44.9); Hemoglobin 12.9 g/dL (11.5-15.4); Immature Granulocytes % 0.2 % (0-4); Lymphocytes # 1.8 K/mcL (0.6-4.6); Lymphocytes % 29.9 %; Mean Corpuscular HGB Conc 31.7 g/dL (31.6-35.5); Mean Corpuscular Volume 91.5 fL (83.0-100.0); Mean Platelet Volume 11.7 fL (9.4-12.4); Monocytes # 0.5 K/mcL (0.0-1.3); Monocytes % 8.3 %; Neutrophils # 3.5 K/mcL (1.6-8.9); Platelet Count 165 K/mcL (140-400); Red Blood Count 4.45 M/mcL (3.82-4.97); Red Cell Distribution Width 13.9 % (11.5-14.5); Segmented Neutrophils % 58.1 %
[2019-04-13 07:39] LABS: BUN/Creatinine Ratio 20 (6-26); Blood Urea Nitrogen 12 mg/dL (6-20); Calcium 9.5 mg/dL (8.6-10.3); Carbon Dioxide 25 mEq/L (23-29); Chloride 107 mEq/L (98-107); Glucose 97 mg/dL (70-105); Osmolality,Calculated 292 (280-300); Phosphorous 3.9 mg/dL (2.7-4.5); Potassium 3.7 mEq/L (3.5-5.1); Sodium 141 mEq/L (136-145); eGFR For Non-African Americans > 60 (> 60)
[2019-04-13] MEDS ORDERED: Aspirin Enteric Coated 81 MG Tablet PO SCH (09:00)
[2019-04-13 11:27] VITALS: BP 147/77
[2019-04-13] MEDS ORDERED: Ibuprofen 600 MG TABLET PO ONE (11:30)
--- NOTE | 2019-04-13 13:01 | Discharge Summary ---
- NOTES TO OUTPATIENT PROVIDER Notes to Outpatient Provider: f/u with PCP in one week. Orders not resulted at time of discharge: Pending orders 04/12/19 07:26 NM ariel perf SPECT multi [NM] Routine Date of Encounter: 04/13/19 Time of Encounter: 12:55 - Discharge Diagnosis (1) Chest pain Priority: Primary Status: Acute Qualifiers: Chest pain type: unspecified Qualified Code(s): R07.9 - Chest pain, unspecified (2) Hypertension Priority: Secondary Status: Chronic Qualifiers: Hypertension type: essential hypertension Qualified Code(s): I10 - Essential (primary) hypertension (3) HLD (hyperlipidemia) Priority: Secondary Status: Acute Qualifiers: Hyperlipidemia type: mixed hyperlipidemia Qualified Code(s): E78.2 - Mixed hyperlipidemia (4) DVT prophylaxis Priority: Secondary Status: Acute (5) Hypothyroidism Priority: Secondary Status: Acute Qualifiers: Qualified Code(s): E03.9 - Hypothyroidism, unspecified Hospital course: Ms. English is a 53 year old female with pmh of obesity, CAD s/p stent, hypothyroidism, hypertension presenting with complaints of chest pain of 1 day duration. Patient says she woke up yesterday and had chest pain, sharp lasting about 1 minute and took some nitroglycerin which helped relieve the pain. She felt fine for the rest of the day but then she experienced similar chest pain that felt like a discomfort later in the night. She was admitted in the hospital and placed on surveillance system monitor. Her initial EKG did not show any acute ischemic changes. Her serial troponin came back as negative. Since patient is high risk for ACS she did go for nuclear stress test which came back as negative ischemia / Infarction. Will d/c her home in stable condition today. - Time Spent with Patient Total time spent providing and/or coordinating discharge services: - Discharge Medications Prescriptions: Continued Losartan Potassium [Cozaar] 100 mg PO QAM Nitroglycerin [Nitrostat] 0.4 mg SL Q5M PRN PRN Reason: chest pain Clopidogrel [Plavix] 75 mg PO DAILY Atorvastatin Calcium [Lipitor] 80 mg PO HS Carvedilol [Coreg] 25 mg PO BID Levothyroxine Sodium [Levo-T] 137 mcg PO QAM Aspirin [Adult Aspirin Regimen] 81 mg PO DAILY Home Medications: Losartan Potassium [Cozaar] 100 mg PO QAM 07/17/16 [History] Nitroglycerin [Nitrostat] 0.4 mg SL Q5M PRN 02/03/17 [History] Aspirin [Adult Aspirin Regimen] 81 mg PO DAILY 04/12/19 [History] Atorvastatin Calcium [Lipitor] 80 mg PO HS 04/12/19 [History] Carvedilol [Coreg] 25 mg PO BID 04/12/19 [History] Clopidogrel [Plavix] 75 mg PO DAILY 04/12/19 [History] Levothyroxine Sodium [Levo-T] 137 mcg PO QAM 04/12/19 [History] Allergies/Adverse Reactions: Allergy/AdvReac Type Severity Reaction Status Date / Time No Known Allergies Allergy Verified 04/12/19 12:00 Date of admission: 04/12/19 01:44 Primary care physician: PCP NONE - Constitutional Vitals: Temp Pulse Resp BP Pulse Ox 98.7 F 61 16 147/77 98 04/13/19 11:24 04/13/19 11:24 04/13/19 11:24 04/13/19 11:24 04/13/19 11:24 General appearance: Present: A&O X 3, no acute distress, answers questions appropriately Exam: Gen: Alert, awake, Oriented to time,place and person Chest: Diminished breath sounds B/L, No wheezing, No crackles, No rales Heart: S1S2+ RRR No murmurs Abd: Soft, NT, BS +, No organomegaly Ext: No edema, pulses are palpable, No calf tenderness Neuro : Benign findings Skin: No rash. - Patient Status Disposition: Home, Self-Care Condition: Good Overall status at discharge: patient is back to baseline - Discharge Instructions Follow Up With: Alma Zhong [Advanced Practice Nurse] - 04/19/19 9:30 am - Diet and Activity Activity: increase activity as tolerated Diet: low salt diet
== END 2019-04-13 15:01 | disposition home or self-care (01) ==
LOC: EMEROOARM 00:30 → 3BNU 00:30
PROVIDERS: ADMIT Internal Medicine; ATTEND Internal Medicine